=== PATIENT | male | born 1980 | race Caucasian/White ===

== ENCOUNTER 2017-07-21 16:37 | Emergency (ER) | payer OTHER ==
[~2017-07-21] VITALS: Ht 175.3 cm; Wt 72.6 kg
[2017-07-21 16:50] VITALS: BP 122/78
[2017-07-21] MEDS ORDERED: TRAMADOL 50 MG50 MG PO (16:59)
== END 2017-07-21 17:07 | disposition home or self-care (01) ==
LOC: M.ERS 16:37
DX: M25.561 Pain in right knee (principal)